=== PATIENT | female | born 1960 | race Caucasian/White ===

== ENCOUNTER 2022-01-03 10:29 | Day surgery (SDC) | payer MEDICAID ==
[2021-12-25 12:13] LABS: BASOPHILS # (AUTO) 0.1 X10'3 (0-0.2); BASOPHILS % (AUTO) 0.9 % (0-1); EOSINOPHILS # (AUTO) 0.3 X10'3 (0-0.9); EOSINOPHILS % (AUTO) 3.8 % (0-6); LYMPHOCYTES # (AUTO) 2.1 X10'3 (1.1-4.8); LYMPHOCYTES % (AUTO) 29.5 % (21-51); MEAN CORPUSCULAR HEMOGLOBIN 28.9 PG (27.0-31.0); MEAN CORPUSCULAR HGB CONC 33.3 g/dL (33.0-36.5); MEAN CORPUSCULAR VOLUME 86.6 FL (78-98); MEAN PLATELET VOLUME 7.9 FL (7.4-10.4); MONOCYTES # (AUTO) 0.6 X10'3 (0-0.9); MONOCYTES % (AUTO) 7.8 % (2-12); NEUTROPHILS # (AUTO) 4.1 X10'3 (1.8-7.7); PRE OP HEMATOCRIT 38.7 % (35.0-45.0); PRE OP HEMOGLOBIN 12.9 g/dL (12.0-16.0); PRE OP PLATELET COUNT 368 X10'3 (140-440); RED BLOOD COUNT 4.47 X10'6 (4.20-5.60)
[2021-12-25 12:55] LABS: ALBUMIN 3.6 G/DL (3.4-5.0); ALKALINE PHOSPHATASE 91 IU/L (46-116); BLOOD UREA NITROGEN 11 MG/DL (7-18); BUN/CREATININE RATIO 11.7 (6.6-38.0); CALCIUM 8.9 MG/DL (8.5-10.1); CHLORIDE 106 MMOL/L (99-107); CREATININE 0.94 MG/DL (0.40-0.90); PRE OP ALT 24 U/L (30-65); PRE OP ANION GAP 12 (8-16); PRE OP AST 15 U/L (10-37); PRE OP BILIRUB, TOTAL 0.3 MG/DL (0.0-1.0); PRE OP GLUCOSE 90 MG/DL (70-104); PRE OP SODIUM 143 MMOL/L (135-145); TOTAL CARBON DIOXIDE 25.4 MMOL/L (24-32); TOTAL PROTEIN 7.2 G/DL (6.4-8.2); eGFR 61 ML/MIN
[2022-01-03] VITALS (9 sets, daily range): BP systolic 131–152; BP diastolic 70–91
[~2022-01-03] VITALS: Ht 165.1 cm; Wt 106.6 kg
[~2022-01-03 10:29] MED LIST: ESCI-8 PO; LEVO100T9 PO; PANT40TA54 PO; cefazolin/dext.iso 2gm/50ml IV ONE; famotidine 20mg tablet PO ONE; ringers solution, lacted 1,000 ML IV SCH; vancomycin 1,500 MG in NS 300ml IV soln IV ONE
[2022-01-03] MEDS ORDERED: scopolamine 1mg/72 hr patch TD ONE (12:57)
[2022-01-03] MEDS ORDERED: BUPIVAcaine 0.5% inj/PF 30 ML ONE (13:43)
[2022-01-03] MEDS ORDERED: triamcinolone acetonide 40mg/ml inj ONE (13:45)
[2022-01-03] MEDS ORDERED: sevoflurane 250ml liquid IH ONE (14:28)
[2022-01-03] MEDS ORDERED: ePHEDrine 50MG/ML INJ. ONE (14:28)
[2022-01-03] MEDS ORDERED: acetaminophen 1000 MG/100ml vial IV ONE (14:28)
[2022-01-03] MEDS ORDERED: dexamethasone sod phosphate 10mg/ml inj ONE (14:28)
[2022-01-03] MEDS ORDERED: FENTANYL CITRATE/PF 50 MCG/1 ML VIAL ONE ×2 (14:32→14:46)
[2022-01-03] MEDS ORDERED: midazolam 1 mg/ML 2ml injection ONE (14:33)
[2022-01-03] MEDS ORDERED: ringers solution, lacted 1,000 ML IV SCH (14:55)
[2022-01-03] MEDS ORDERED: morphine 4 MG/ML inj SYRINge IV PRN (14:55)
[2022-01-03] MEDS ORDERED: ondansetron/PF 4mg/2ml inj IV PRN (14:55)
[2022-01-03] MEDS ORDERED: morphine 2 MG/ML inj. syringe IV PRN (14:55)
[2022-01-03] MEDS ORDERED: proCHLORperazine 10 MG/2 ml inj IV PRN (14:55)
[2022-01-03] MEDS ORDERED: meperidine/PF 25mg/ml syringe IV PRN ×3 (14:55)
[2022-01-03] MEDS ORDERED: propofol inj 20 ML IV ONE (15:19)
[2022-01-03] MEDS ORDERED: rocuronium 10mg/ml inj IV ONE (15:19)
[2022-01-03] MEDS ORDERED: LIDOcaine 2% (20mg/ml) 5ml vial ONE (15:19)
[2022-01-03] MEDS ORDERED: neostigmine methylsulfate 1 MG/ML 10ml vial ONE (15:19)
[2022-01-03] MEDS ORDERED: glycopyrrolate 0.2mg/ml inj ONE (15:19)
[2022-01-03] MEDS ORDERED: BUPIVAcaine 0.5% inj/PF 30 ml vial IJ ONE (15:19)
[2022-01-03] MEDS ORDERED: ondansetron/PF 4mg/2ml inj ONE (15:19)
--- NOTE | 2022-01-03 16:10 | NUR ---
Received from OR via [facility], accompanied by Anesthesiologist DHARMESH and report given by Anesthesiolgist. PT DROWSY, OXYGENATING WELL ON 10 LPM O2 VIA MASK, NO RESP DISTRESS NOTED. PT DENIES NAUSEA, C/O MILD PAIN R KNEE INCSIONAL PAIN. MEDICATED PRN, SEE EMAR. BILKY DSG TO R KNEE CDI. VSS.
[2022-01-03] MEDS ORDERED: HYDROcodone/acetaminophen 10/325mg tab PO ONE (17:10)
--- NOTE | 2022-01-03 17:45 | NUR ---
PT MEDICATED FOR MODERATE INCISIONAL PAIN IN R KNEE WITH NORCO 10/325. TOLERATING PO FLUIDS WELL. VSS. DISCHARGE INSTRUCTIONS EXPLAINED TO PT, SHE VERBALIZED UNDERSTANDING.TAKEN TO CAR VIA AVA, TIMOD IN STABLE CONDITION.
== END 2022-01-03 17:45 | disposition home or self-care (01) ==
LOC: PAS 10:29
PROVIDERS: ATTEND Orthopaedic Surgery
DX: S83.271A Complex tear of lateral meniscus, current injury, right knee, initial encounter (principal); S83.231A Complex tear of medial meniscus, current injury, right knee, initial encounter; M17.11 Unilateral primary osteoarthritis, right knee; F32.A Depression, unspecified; K21.9 Gastro-esophageal reflux disease without esophagitis; E03.9 Hypothyroidism, unspecified; E66.01 Morbid (severe) obesity due to excess calories; Z68.38 Body mass index [BMI] 38.0-38.9, adult; Z98.890 Other specified postprocedural states; Z79.899 Other long term (current) drug therapy; Z85.3 Personal history of malignant neoplasm of breast; Z88.8 Allergy status to other drugs, medicaments and biological substances; Z20.822 Contact with and (suspected) exposure to COVID-19; X58.XXXA Exposure to other specified factors, initial encounter; Y92.89 Other specified places as the place of occurrence of the external cause; Y93.89 Activity, other specified; Y99.8 Other external cause status
CPT/HCPCS: 29873; 29879; 29880; 36415; 80053; 82948; 85025; 93005; J0131; J0690; J1100; J2175; J2250; J2405; J2704; J2710; J3010; J3370; J3490; J7040; J7120; S0020; U0003; U0005; Z7506; Z7508; Z7512; A4215; A4618; A6250; A6449; A7000; J3301